=== PATIENT | male | born 1990 | race Caucasian/White ===

== ENCOUNTER 2018-06-25 00:52 | Emergency (ER) | payer OTHER ==
[~2018-06-25] VITALS: Ht 175.3 cm; Wt 74.8 kg
--- NOTE | 2018-06-25 00:52 | NUR ---
Patient to ER bed 6 to gown for evaluation. Side rails up.
[2018-06-25 01:05] VITALS: BP_SYST 140
--- NOTE | 2018-06-25 01:07 | NUR ---
PT SEEN IN BED 6, COMPLAINS OF CHEST TIGHTNESS THAT RADIATES TO LEFT SHOULDER. PT STATES TO HAVE TAKEN 10MG ADDERRAL, VAPE WITH 5% NICOTINE, AND SMOKING THC PRIOR APPROXIMATELY 3 HOURS PRIOR TO ARRIVAL. PT STATES TO HAVE FELT PALPITATIONS SINCE EARLY IN THE AFTERNOON. PT IS SHAKING AND VERBALLY ANXIOUS. Addendum: 06/25/18 at 0122 by [email or web address] PT SEEN IN BED 6, COMPLAINS OF CHEST TIGHTNESS THAT RADIATES TO LEFT SHOULDER. PT STATES TO HAVE TAKEN 10MG ADDERRAL, VAPE WITH 5MG NICOTINE, AND SMOKING THC PRIOR APPROXIMATELY 3 HOURS PRIOR TO ARRIVAL. PT STATES TO HAVE FELT PALPITATIONS SINCE EARLY IN THE AFTERNOON. PT IS SHAKING AND VERBALLY ANXIOUS.
--- NOTE | 2018-06-25 01:08 | NUR ---
ED MD Alcantara at bedside for medical evaluation.
[2018-06-25] MEDS ORDERED: ASPIRIN 81 MG TAB.CHEW PO ONE (01:15)
--- NOTE | 2018-06-25 01:18 | NUR ---
Radiology at bedside for CXR.
[2018-06-25 01:51] LABS: BILIRUBIN,URINE NEGATIVE (NEGATIVE); BLOOD, URINE NEGATIVE (NEGATIVE); CLARITY/URINE CLEAR (CLEAR); COLOR,URINE YELLOW (YELLOW); GLUCOSE,URINE NEGATIVE (NEGATIVE); KETONES,URINE 1+ (NEGATIVE); LEUKOCYTE ESTERASE ,URINE NEGATIVE (NEGATIVE); NITRITE, URINE NEGATIVE (NEGATIVE); PROTEIN URINE NEGATIVE (NEGATIVE)
[2018-06-25 01:55] LABS: BASOPHILS # (AUTO) 0.1 K/uL (0.0-0.2); BASOPHILS % (AUTO) 0.8 % (0.0-2.0); EOSINOPHILS # (AUTO) 0.3 K/uL (0.0-0.4); EOSINOPHILS % (AUTO) 3.3 % (0.0-4.0); HEMATOCRIT 43.1 % (36-54); HEMOGLOBIN 13.7 g/dL (14.0-18.0); LYMPHOCYTES # (AUTO) 2.9 K/uL (1.0-5.5); LYMPHOCYTES % (AUTO) 37.3 % (20.5-51.5); MEAN CORPUSCULAR HEMOGLOBIN 25 pg (27-31); MEAN CORPUSCULAR HGB CONC 32 % (32-36); MEAN CORPUSCULAR VOLUME 78 fL (79.0-98.0); MONOCYTES # (AUTO) 0.5 K/uL (0.0-1.0); MONOCYTES % (AUTO) 6.5 % (1.7-9.3); NEUTROPHILS # (AUTO) 3.9 K/uL (1.8-7.7); NEUTROPHILS % (AUTO) 52.1 % (40.0-70.0); PLATELET COUNT (AUTO) 292 K/uL (130-430); RED BLOOD CELL COUNT(AUTO) 5.51 MIL/uL (4.2-6.2); RED CELL DISTRIBUTION WIDTH 14.8 % (9.0-15.0); WHITE BLOOD COUNT (AUTO) 7.7 K/uL (4.8-10.8)
[2018-06-25 02:02] LABS: CALCIUM 9.5 mg/dL (8.4-11.0); CREATININE 0.93 mg/dL (0.55-1.30); POTASSIUM 3.8 mmol/L (3.5-5.1)
[2018-06-25 02:07] LABS: ALBUMIN 4.1 g/dL (3.4-4.8); INR 1.1 (0.80-1.20); TOTAL BILIRUBIN 0.5 mg/dL (0.0-1.0)
[2018-06-25 02:11] LABS: URINE AMPHETAMINE POSITIVE (NEG <=500)
[2018-06-25 02:12] LABS: BARBITURATE, URINE NEGATIVE (NEG <=200); BENZODIAZEPINE, URINE NEGATIVE (NEG <=150); CANNABINOID, URINE POSITIVE (NEG <=50); COCAINE, URINE NEGATIVE (NEG <=150); METHAMPHETAMINES SCREEN,URINE NEGATIVE (NEG <=500); OPIATE, URINE NEGATIVE (NEG <=100); PHENCYCLIDINE SCREEN,URINE NEGATIVE (NEG <=25); UR TRICYCLIC ANTIDEPRESSANTS NEGATIVE (NEG <=300); URINE METHADONE NEGATIVE (NEG <=200); URINE OXYCODONE SCREEN NEGATIVE (NEG <=100); URINE PROPOXYPHENE SCREEN NEGATIVE (NEG <=300)
[2018-06-25] MEDS ORDERED: LORazepam 1 MG TABLET PO ONE (02:15)
[2018-06-25 03:24] VITALS: BP_SYST 140
--- NOTE | 2018-06-25 03:24 | NUR ---
Patient given written and verbal discharge instructions and verbalizes understanding. ER MD DR. Franco MORILLO discussed with patient the results and treatment provided. Patient in stable condition. ID arm band removed. IV catheter removed intact and dressing applied, no active bleeding. Rx of ATIVAN given. Patient educated on pain management and to follow up with PMD. Pain Scale 0/10. Opportunity for questions provided and answered. Medication side effect fact sheet provided.
== END 2018-06-25 03:24 | disposition home or self-care (01) ==
LOC: SED 00:52
DX: R07.89 Other chest pain (principal); R06.02 Shortness of breath; M54.2 Cervicalgia; M79.602 Pain in left arm; R61 Generalized hyperhidrosis; R11.0 Nausea; F90.9 Attention-deficit hyperactivity disorder, unspecified type; F41.0 Panic disorder [episodic paroxysmal anxiety]
CPT/HCPCS: 36415; 71045; 80053; 80307; 81003; 82550-TC; 83880; 84484; 85025; 85379; 85610-TC; 93005; 99285